=== PATIENT | female | born 1940 | race Caucasian/White ===

== ENCOUNTER 2018-09-09 10:02 | Emergency (ER) | payer OTHER, SELFPAY ==
[2018-09-09] VITALS (11 sets, daily range): BP systolic 91–158; BP diastolic 57–101; PULSE 65–76; RESP 14–20; TEMP 36.6; O2SAT 95–97
--- NOTE | 2018-09-09 10:33 | PC.NURSE ---
denies other symptoms.
--- NOTE | 2018-09-09 10:37 | PC.NURSE ---
pt has first appointment with behavioral on november 2018
[2018-09-09 11:47] LABS: Bacteria Urine None Seen; RBC Urine None Seen (0-5/HPF)
[2018-09-09 11:53] LABS: Appearance Urine UA CLEAR; Bilirubin Urine UA NEGATIVE (NEGATIVE); Color Urine UA YELLOW; Glucose Urine UA NEGATIVE (Normal); Ketones Urine UA NEGATIVE (NEGATIVE); Leukocyte Esterase Urine UA TRACE (NEGATIVE); Nitrite Urine UA NEGATIVE (Negative); Occult Blood Urine UA NEGATIVE (Negative); Protein Urine UA NEGATIVE (Negative); Specific Gravity Urine UA 1.015 (1.000-1.035); Urobilinogen Urine UA 0.2 E.U./dL (0.2); pH Urine UA 7.5 (4.5-8.0)
[2018-09-09] MEDS: SODIUM CHLORIDE 0.9% 1,000 ML 1000 ML IV (11:53)
[2018-09-09] MEDS: LORazepam 2 MG/ML SYRINGE 0.5 MG IV (11:53)
[2018-09-09 11:57] LABS: Urine Amphetamines Negative (Negative); Urine Barbiturates Negative (Negative); Urine Benzodiazepines Negative (Negative); Urine Cocaine Negative (Negative); Urine MDMA Negative (Negative); Urine Methadone Negative (Negative); Urine Methamphetamines Negative (Negative); Urine Morphine/Opi cutoff 2000 Negative (Negative); Urine Oxycodone Negative (Negative); Urine Phencyclidine Negative (Negative); Urine Tetrahydrocannabinol Negative (Negative); Urine Tricyclic Antidepressant Negative (Negative)
[2018-09-09 12:12] LABS: WBC Urine 0-1/HPF (0-5/HPF)
[2018-09-09 12:13] LABS: Culture Indicated Urine Specimen Cultured
--- NOTE | 2018-09-09 13:05 | ED_ITS ---
HPI - Psych General Chief Complaint: Psychiatric Symptoms Stated Complaint: Needs Psychiatric help Time Seen by Provider: 09/09/18 10:50 Source: patient and family Mode of arrival: ambulatory Limitations: no limitations History of Present Illness HPI Narrative: Patient comes to the emergency department stating that she is here because ?I feel like I am going down?. Patient states she has a history of bipolar disorder, and that whenever she has a ?trigger? her bipolar access. Patient is not able to clarify whether she is taking any medication, though her son states she is supposed to be taking lithium. The son tells me privately that the patient is highly intolerant of any questions about her medications, and so he is unable to determine whether she has been compliant with treatment. Patient also is unable to clarify for me what treatments, if any, has been helpful for her in the past. Patient has had multiple psychiatric admissions previously both in [place] of [place]. She has struggled with mental illness for decades. Patient denies any suicidal or homicidal ideation. Patient's son states that she has been hearing voices telling her to do things, such as surrounding her cellphone to [facility]. He states that patient has also been feeling impulses to call the police, and has been calling the police about every other day. Son states he is concerned, because the patient ripped her phone out of her wall, and has surrounded her cell phone, and now he has no way to get a hold of her. Patient also has a daughter who lives in [place]. Patient has been picking fights with the neighbors, including accusing them of parking on her driveway, when there is not a car there. Patient is not known to have a diagnosis of dementia. Son is not sure if patient is following up with any physician in particular. Patient states she has felt tired recently, but denies any other symptoms of physical illness. MD complaint: other (See above.) Onset (ago): week(s) Duration: intermittent History of same: Yes Relieving factors: none Exacerbating factors: other (Stressful social situations.) Associated psychiatric symptoms: auditory hallucinations Associated symptoms: denies other symptoms Treatments prior to arrival: none Related Data Home Medications Medication Instructions Recorded Confirmed atorvastatin 20 mg PO QPM 09/09/18 09/09/18 hydroxyzine pamoate 1 cap PO BID 09/09/18 09/09/18 lisinopril 1 tab PO DAILY 09/09/18 09/09/18 lithium carbonate 1 cap PO BID 09/09/18 09/09/18 omeprazole 1 cap PO DAILY 09/09/18 09/09/18 quetiapine 1 tab PO BEDTIME 09/09/18 09/09/18 Allergies Allergy/AdvReac Type Severity Reaction Status Date / Time prednisone [PREDNISONE] Allergy Unknown Verified 09/09/18 11:53 Review of Systems Review of Systems All systems reviewed & are unremarkable except as noted in HPI and below Constitutional Denies chills, Denies fever(s), Denies lethargy and Denies weakness Eyes Denies change in vision, Denies eye discharge, Denies irritation and Denies loss of vision ENT Ears, Nose, Mouth, and Throat: Denies change in voice, Denies neck pain and Denies sore throat Cardiovascular Denies chest pain, Denies irregular heart rhythm, Denies lightheadedness, Denies palpitations, Denies dyspnea, Denies dyspnea on exertion and Denies orthopnea Respiratory Denies cough, Denies dyspnea, Denies dyspnea on exertion and Denies wheezing Gastrointestinal Gastrointestinal: Denies abdominal pain, Denies change in bowel habits, Denies diarrhea, Denies nausea and Denies vomiting Genitourinary Denies hematuria, Denies flank pain, Denies urinary incontinence and Denies urinary urgency Musculoskeletal Denies neck pain Integumentary/Breasts Denies pruritus, Denies erythema, Denies rash and Denies wounds Neurologic Reports behavioral changes, Denies confusion, Denies loss of vision and Denies weakness Psychiatric Reports anxiety, Reports behavioral changes, Denies confusion, Denies depression , Reports irritability, Denies homicidal ideation and Denies suicidal ideation Endocrine Denies palpitations Hematologic/Lymphatic Denies easy bruising Allergic/Immunologic Denies wheezing PFSH Medical History HTN (hypertension) (Acute) Bipolar disorder (Acute) Surgical History No pertinent past surgical history (Acute) Social History Smoking Status: Never smoker Exam Initial Vital Signs Initial Vital Signs: Vital Signs Temperature 98 F 09/09/18 10:20 Pulse Rate 71 09/09/18 10:20 Respiratory Rate 20 09/09/18 10:20 Blood Pressure 158/98 H 09/09/18 10:20 Pulse Oximetry 97 09/09/18 10:20 Const General: cooperative and well developed Nutritional Appearance: well nourished Orientation: alert, awake, oriented x3 and not confused [facility] Head: normocephalic and atraumatic Ears: external ears normal and TM's normal bilaterally Nose: external nose normal and No nasal discharge Face and sinus: sinuses nontender, face symmetric, no sinus tenderness and No dry mucous membranes Mouth: oral mucosae normal and moist mucous membranes Teeth and gingiva: dentition normal Throat: tonsils normal and uvula midline Eyes General: appearance normal, both eyes and all related structures Eyelids: eyelids normal Conjunctivae: conjunctivae normal Sclera: sclerae normal Pupils: PERRL EOM: EOM intact bilaterally Neck Neck: normal visual inspection, trachea midline, No lymphadenopathy, No midline deformity and No JVD Lymphatic: No lymphedema Chest Chest: normal inspection of the chest Resp Effort & Inspection: normal respiratory effort, able to speak in complete sentences, no respiratory distress and no use of accessory muscles Auscultation: clear to auscultation bilaterally, no rales, no rhonchi and no wheezes Cardio Rate: regular rate Rhythm: regular rhythm Heart Sounds: no click, no gallops, no murmurs and no rubs Pulses: normal peripheral pulses GI Inspection: non-distended Palpation: soft, no hepatosplenomegaly, No guarding, No pulsatile mass and No tender Auscultation: normal bowel sounds Back/Spine/Pelvis Back: No CVA tenderness Cervical Spine: cervical ROM normal and No pain with cervical ROM Thoracic/Lumbar Spine: thoracic and lumbar spine normal to inspection Skin General: no rashes or lesions noted, No jaundice and No petechiae Neuro General: alert, oriented x3, gait normal and no focal motor deficits Speech: speech normal Extrem General: full ROM, no clubbing, cyanosis or edema, no pedal edema and no calf tenderness Psych Appearance: well kempt Mental Status: mental status grossly normal Attitude: cooperative Thought Content: delusions (Mild, occasional), suicidality and other Judgment: fair Course Course Narrative: Patient's son took me aside privately to express his concerns about the patient's condition. We did discuss that treatment may be undertaken as an inpatient or an outpatient, but it depends on the patient's level of incapacity and her level of cooperation. Patient was cooperative in the emergency department. She was worked up with labs, including lithium level, and treated with Ativan. I did speak with our social media project manager in house, end after evaluation, it was determined by the social media project manager in concert with the patient's family that the patient would be managed as an outpatient. The son agreed to take the patient straight to an appointment with [facility] from the emergency department. The patient was agreeable to this plan. Orders Ordered: Discontinued Medications Sodium Chloride (Normal Saline 0.9%) 1,000 mls @ 1,000 mls/hr IV BOLUS ONE Stop: 09/09/18 12:30 Last Infusion: 09/09/18 14:20 Dose: 0 mls/hr Admin: 09/09/18 11:53 Dose: 1,000 mls/hr Lorazepam (Ativan) 0.5 mg IV NOW ONE Stop: 09/09/18 11:32 Last Admin: 09/09/18 11:53 Dose: 0.5 mg Vital Signs - 8 hr 09/09/18 10:20 09/09/18 11:32 09/09/18 12:04 Temperature 98 F Pulse Rate 71 70 70 Respiratory Rate 20 16 16 Blood Pressure 158/98 H Blood Pressure [Left Arm] 134/90 132/86 Pulse Oximetry 97 [address] [facility] - Psych Medical Records Attestation: I reviewed the patient's medical records. Lab Data Attestation: I reviewed the patient's lab results. Result diagrams: 09/09/18 11:50 09/09/18 11:50 Lab Results 09/09/18 09/09/18 09/09/18 Range/Units 11:45 11:45 11:50 WBC 5.7 (4.5-11.0) X10^3/uL RBC 5.02 (4.0-5.2) X10^6/uL Hgb 14.8 (12.0-16.0) g/dL Hct 45.2 (36-46) % MCV 90.1 (80-100) fL MCH 29.4 (26-34) PG MCHC 32.6 (30-36) % RDW 13.9 (11.6-14.8) % Plt Count 319 (150-400) X10^3/uL Neut % (Auto) 59.3 (50-75) % Lymph % (Auto) 27.4 (25-40) % Russell % (Auto) 7.5 (3-14) % Eos % (Auto) 4.8 H (2-4) % Baso % (Auto) 1.0 (0-2) % Neut # (Auto) 3400 (9975-9446) /uL Sodium (137-145) mmol/L Potassium (3.4-5.1) mmol/L Chloride (98-107) mmol/L Carbon Dioxide (22-32) mmol/L BUN (7-17) mg/dL Creatinine (0.52-1.04) mg/dL Estimated GFR (>60) mL/min BUN/Creatinine Ratio (6-22) Glucose (80-110) mg/dL Calcium (8.4-10.2) mg/dL Total Bilirubin (0.2-1.3) mg/dL AST (14-36) IU/L ALT (9-52) IU/L Alkaline Phosphatase (38-126) U/L Total Protein (6.3-8.2) g/dL Albumin (3.5-5.0) g/dL Globulin (1.7-4.1) g/dL Albumin/Globulin Ratio (1.0-2.8) TSH (0.47-4.68) uIU/mL Urine Color Yellow Urine Appearance Clear Urine pH 7.5 (4.5-8.0) Ur Specific [place] 1.015 (1.000-1.035) Urine Protein Negative (Negative) Urine Glucose (UA) Negative (Normal) g/dL Urine Ketones Negative (NEGATIVE) Urine Occult Blood Negative (Negative) Urine Nitrate Negative (Negative) Urine Bilirubin Negative (NEGATIVE) Urine Urobilinogen 0.2 (0.2) E.U./dL Ur Leukocyte Esterase Trace H (NEGATIVE) Urine RBC None seen (0-5/HPF) Urine WBC 0-1/hpf (0-5/HPF) Urine Bacteria None seen (None) Ur Culture Indicated? Specimen cultured Micro UA Comment Not Reportable Urine Opiates Screen Negative (Negative) Ur Oxycodone Screen Negative (Negative) Urine Methadone Screen Negative (Negative) Ur Barbiturates Screen Negative (Negative) U Tricyclic Antidepress Negative (Negative) Ur Phencyclidine Scrn Negative (Negative) Ur Amphetamines Screen Negative (Negative) U Methamphetamines Scrn Negative (Negative) Ur MDMA Scrn (Ecstasy) Negative (Negative) U Benzodiazepines Scrn Negative (Negative) [place] (0.6-1.2) mmol/L Urine Cocaine Screen Negative (Negative) U Marijuana (THC) Screen Negative (Negative) 09/09/18 09/09/18 09/09/18 Range/Units 11:50 11:50 11:50 WBC (4.5-11.0) X10^3/uL RBC (4.0-5.2) X10^6/uL Hgb (12.0-16.0) g/dL Hct (36-46) % MCV (80-100) fL MCH (26-34) PG MCHC (30-36) % RDW (11.6-14.8) % Plt Count (150-400) X10^3/uL Neut % (Auto) (50-75) % Lymph % (Auto) (25-40) % Russell % (Auto) (3-14) % Eos % (Auto) (2-4) % Baso % (Auto) (0-2) % Neut # (Auto) (4740-0387) /uL Sodium 142 (137-145) mmol/L Potassium 4.9 (3.4-5.1) mmol/L Chloride 104 (98-107) mmol/L Carbon Dioxide 29 (22-32) mmol/L BUN 18 H (7-17) mg/dL Creatinine 0.60 (0.52-1.04) mg/dL Estimated GFR > 60.0 (>60) mL/min BUN/Creatinine Ratio 30.0 H (6-22) Glucose 96 (80-110) mg/dL Calcium 9.4 (8.4-10.2) mg/dL Total Bilirubin 0.9 (0.2-1.3) mg/dL AST 67 H (14-36) IU/L ALT 35 (9-52) IU/L Alkaline Phosphatase 115 (38-126) U/L Total Protein 6.7 (6.3-8.2) g/dL Albumin 4.1 (3.5-5.0) g/dL Globulin 2.6 (1.7-4.1) g/dL Albumin/Globulin Ratio 1.6 (1.0-2.8) TSH 1.53 (0.47-4.68) uIU/mL Urine Color Urine Appearance Urine pH (4.5-8.0) Ur Specific [place] (1.000-1.035) Urine Protein (Negative) Urine Glucose (UA) (Normal) g/dL Urine Ketones (NEGATIVE) Urine Occult Blood (Negative) Urine Nitrate (Negative) Urine Bilirubin (NEGATIVE) Urine Urobilinogen (0.2) E.U./dL Ur Leukocyte Esterase (NEGATIVE) Urine RBC (0-5/HPF) Urine WBC (0-5/HPF) Urine Bacteria (None) Ur Culture Indicated? Micro UA Comment Urine Opiates Screen (Negative) Ur Oxycodone Screen (Negative) Urine Methadone Screen (Negative) Ur Barbiturates Screen (Negative) U Tricyclic Antidepress (Negative) Ur Phencyclidine Scrn (Negative) Ur Amphetamines Screen (Negative) U Methamphetamines Scrn (Negative) Ur MDMA Scrn (Ecstasy) (Negative) U Benzodiazepines Scrn (Negative) [place] 0.5 L (0.6-1.2) mmol/L Urine Cocaine Screen (Negative) U Marijuana (THC) Screen (Negative) Discharge Plan Departure Patient Disposition: Home Clinical Impression: Bipolar disorder Discharge Date/Time: 09/09/18 17:27 Interventions: ED Discharge Assessment Last Done: 09/09/18 17:26 Instructions: DI for Bipolar Disorder Activity Restrictions/Additional Instructions: Please follow up with [facility] as you are scheduled to do, this evening. If you need further assistance, please call the Crisis Line at . Prescriptions: No Action atorvastatin 20 mg tablet 20 mg PO QPM RF: 0 lithium carbonate 300 mg capsule 1 cap PO BID RF: 0 lisinopril 10 mg tablet 1 tab PO DAILY RF: 0 omeprazole 20 mg capsule,delayed release(DR/EC) 1 cap PO DAILY RF: 0 hydroxyzine pamoate 25 mg capsule 1 cap PO BID RF: 0 quetiapine 50 mg tablet 1 tab PO BEDTIME RF: 0 Referrals: [facility] [Provider Group]
[2018-09-09 14:02] LABS: Add Manual Diff / Slide Review NO; Eosinophils Percent Auto 4.8 % (2-4); Hematocrit 45.2 % (36-46); Hemoglobin 14.8 g/dL (12.0-16.0); Lymphocytes Percent Auto 27.4 % (25-40); Mean Corpuscular HGB Conc 32.6 % (30-36); Mean Corpuscular Hemoglobin 29.4 PG (26-34); Mean Corpuscular Volume 90.1 fL (80-100); Monocytes Percent Auto 7.5 % (3-14); Neutrophils Absolute Auto 3400 /uL (3000-5900); Neutrophils Percent Auto 59.3 % (50-75); Platelet Count 319 X10^3/uL (150-400); Red Blood Cell Count 5.02 X10^6/uL (4.0-5.2); Red Cell Distribution Width 13.9 % (11.6-14.8); White Blood Cell Count 5.7 X10^3/uL (4.5-11.0)
[2018-09-09 14:08] LABS: Alanine Aminotransferase 35 IU/L (9-52); Albumin 4.1 g/dL (3.5-5.0); Albumin Globulin Ratio 1.6 (1.0-2.8); Alkaline Phosphatase 115 U/L (38-126); Aspartate Aminotransferase 67 IU/L (14-36); Bilirubin Total 0.9 mg/dL (0.2-1.3); Blood Urea Nitrogen 18 mg/dL (7-17); Calcium 9.4 mg/dL (8.4-10.2); Carbon Dioxide 29 mmol/L (22-32); Chloride 104 mmol/L (98-107); Estimated Glomerular Filt Rate > 60.0 mL/min (>60); Globulin 2.6 g/dL (1.7-4.1); Glucose 96 mg/dL (80-110); HEMOLYSIS 16 (0-50); Potassium 4.9 mmol/L (3.4-5.1); Sodium 142 mmol/L (137-145); Total Protein 6.7 g/dL (6.3-8.2)
--- NOTE | 2018-09-09 14:19 | PC.NURSE ---
contacted social, robert will call back per dotty
[2018-09-09 14:39] LABS: Thyroid Stimulating Hormone 1.53 uIU/mL (0.47-4.68)
[2018-09-09 14:43] LABS: Lithium 0.5 mmol/L (0.6-1.2)
--- NOTE | 2018-09-09 16:31 | CM.DPC ---
this RN met with patient in room #12 in the emergency department, introduced myself and role of RN; Asked patient what we could do to help her. With a smile, patient stated, Sisi received what I need; Patient explains she feels she is going down and that this happens to her every year; Patient very teary and explains August 20 was anniversary of her husbands' . Assessed patient to determine safety: patient denies having any weapons at home and when she is asked if she felt she wanted to hurt herself or others she explained, i'm trying to live; Patient explains she does not have a working phone at home, I asked how she calls her son and she states she goes to the neighbors and asks that they call Jesus; Patient is independent with ambulation and does not use assistive devices. Patient identified her PCP as Gabriella Bailey and provided a phone number; I explained she was medically cleared for discharge and provided her with options for follow-up: Crisis Bed: Outreach Mental Health Worker: Patient requests to go home with follow up from hot mill worker from [facility]; hot mill worker scheduled to call patient on son's cell phone at [phone] to arrange a time to check on patient; In prep for Discharge, ED Provider Dr Cosme is providing additional contact phone # for Care Crisis Line for patient and son, Jesus.
== END 2018-09-09 17:27 | disposition home or self-care (01) ==
PROVIDERS: Emergency Provider Emergency Medicine
DX: F31.9 Bipolar disorder, unspecified (principal); F41.9 Anxiety disorder, unspecified
CPT/HCPCS: 36591; 80053; 80178; 80305; 81001; 84443; 85025; 87086; 93005; 93010; 96361; 96374; 99284; 99285; J2060